=== PATIENT | male | born 1965 | race Caucasian/White ===

== ENCOUNTER 2022-03-05 13:55 | Outpatient (REF) | payer BC, SELFPAY ==
[2022-03-05 21:20] LABS: Abs Immature Grans 0.01 10^3/uL (0.0-0.06); Absolute Basophil Count 0.03 10^3/uL (0.0-0.2); Absolute Lymphocyte Count 0.77 10^3/uL (1.2-3.4); Absolute Neutrophil Count 3.24 10^3/uL (1.2-6.7); Basophils % 0.7; HCT 44.5 % (40.0-50.0); HGB 15.9 g/dL (13.5-17.5); Immature Grans % 0.2; Lymphocytes % 17.7; MCH 34.1 pg (27.0-33.0); MCHC 35.7 % (32.0-36.0); MCV 96 fL (80-95); MPV 10.1 fL (8.0-11.0); Monocytes % 6.9; Neutrophils % 74.5; Platelet Count 195 10^3/uL (130-400); RBC 4.66 10^6/uL (4.36-5.78); RDW 11.3 % (11.8-14.1); RDW-SD 39.8 fL; WBC 4.35 10^3/uL (4.4-10.8)
[2022-03-05 21:24] LABS: ALT 15 U/L (16-63); AST 14 U/L (15-37); Albumin 4.1 g/dL (3.4-5.0); Alkaline Phosphatase 56 U/L (46-116); Anion Gap 3.9 mmol/L (3-11); BUN 16 mg/dL (7-18); Bilirubin, Total 1.7 mg/dL (0.2-1.0); CO2 32.1 mmol/L (21.0-32.0); CREATININE 0.9 mg/dL (0.70-1.30); Calcium 8.9 mg/dL (8.5-10.1); Chloride 103 mmol/L (98-107); Estimated GFR 99.62 (mL/min/1.73m2); Glucose 97 mg/dL (74-106); Potassium 4.3 mmol/L (3.5-5.1); Sodium 139 mmol/L (136-145)
[2022-03-05 21:34] LABS: Hemoglobin A1C 5.1 % (<5.7)
[2022-03-06 19:16] LABS: PSA, Screening 0.8 ng/mL (<=3.5)
[2022-03-07 10:19] LABS: Hepatitis C Ab w Rflx HCV PCR Negative (Negative)
== END 2022-03-05 13:56 | disposition home or self-care (01) ==
LOC: LBN 13:55
PROVIDERS: PCP Nurse Practitioner Family; Visit Provider Nurse Practitioner Family
DX: Z00.00 Encounter for general adult medical examination without abnormal findings (principal); Z13.1 Encounter for screening for diabetes mellitus; Z12.5 Encounter for screening for malignant neoplasm of prostate; Z11.59 Encounter for screening for other viral diseases
CPT/HCPCS: 80053; 84153; 86803; 83036; 85025

== ENCOUNTER 2022-06-29 02:06 | Outpatient (CLI) | payer BC, SELFPAY ==
[2022-07-02 12:44] LABS: TB Interpretation Negative (Negative)
== END 2022-06-29 02:07 | disposition home or self-care (01) ==
LOC: LOS 02:06
PROVIDERS: PCP Nurse Practitioner Family; Visit Provider Nurse Practitioner Family
DX: Z11.9 Encounter for screening for infectious and parasitic diseases, unspecified (principal)
CPT/HCPCS: 36415; 86480

== ENCOUNTER 2022-07-13 01:40 | Outpatient (CLI) | payer BC, SELFPAY ==
[2022-07-13 13:00] LABS: Calculated LDL 53 mg/dL (<100); Cholesterol 140 mg/dL (<200); HDL Cholesterol 81 mg/dL (40-60); Triglyceride 30 mg/dL (<150)
[2022-07-13 13:04] LABS: Hemoglobin A1C 4.9 % (<5.7)
[2022-07-15 10:28] LABS: HIV-1/2 Ag & Ab Screen Negative (Negative)
[2022-07-16 09:03] LABS: HBs Antibody, Quant 93.9 mIU/mL (See Note); Hepatitis B Surface Ab Positive (See Note)
[2022-07-16 10:46] LABS: Syphilis Serology (RPR) Negative (Negative)
== END 2022-07-13 01:41 | disposition home or self-care (01) ==
LOC: LOS 01:40
PROVIDERS: Nurse Practitioner; PCP Nurse Practitioner Family; Visit Provider Nurse Practitioner Family
DX: Z00.00 Encounter for general adult medical examination without abnormal findings (principal); Z13.1 Encounter for screening for diabetes mellitus; Z13.220 Encounter for screening for lipoid disorders; Z11.4 Encounter for screening for human immunodeficiency virus [HIV]; Z11.59 Encounter for screening for other viral diseases; Z11.3 Encounter for screening for infections with a predominantly sexual mode of transmission
CPT/HCPCS: 36415; 80061; 86706; 87389; 83036; 86592

== ENCOUNTER 2022-07-13 11:25 | Outpatient (CLI) | payer BC, SELFPAY ==
--- NOTE | 2022-07-13 11:15 | RT.EKG_ITS ---
APPROVED REPORT Exam: Resting ECG Reason for Exam: employment Patient Location: [place] HR:50 bpm ECG Measurements Heart Rate 50 AXIS PA 167 P 77 QRSd 97 QRS 51 QT 439 T 63 QTc 401 Conclusion Sinus rhythm...normal P axis, V-rate 50- 99 Probable left atrial enlargement...P >50mS, <-0.10mV V1 RSR' in V1 or V2, probably normal variant...small R' only
== END 2022-07-13 11:26 | disposition home or self-care (01) ==
LOC: DI.CM 11:26
PROVIDERS: PCP Nurse Practitioner Family; Visit Provider Nurse Practitioner Family
DX: Z02.1 Encounter for pre-employment examination (principal)
CPT/HCPCS: 93010

== ENCOUNTER 2022-08-24 01:21 | Outpatient (CLI) | payer BC, SELFPAY ==
[2022-08-27 09:22] LABS: Hepatitis B Surface Ag Negative (Negative)
== END 2022-08-24 01:22 | disposition home or self-care (01) ==
LOC: LOS 01:22
PROVIDERS: PCP Nurse Practitioner Family; Visit Provider Nurse Practitioner Family
DX: Z02.1 Encounter for pre-employment examination (principal); Z11.59 Encounter for screening for other viral diseases
CPT/HCPCS: 36415; 87340